=== PATIENT | male | born 1970 | race African-American/Black ===

== ENCOUNTER 2019-01-01 18:59 | Emergency (ER) | payer MEDICAID ==
[2019-01-01 20:08] LABS: BILIRUBIN,URINE NEGATIVE (NEGATIVE); GLUCOSE, URINE (UA) NEGATIVE (NEGATIVE); KETONES,URINE (UA) NEGATIVE (NEGATIVE); LEUKOCYTE ESTERASE, URINE NEGATIVE (NEGATIVE); NITRITE,URINE NEGATIVE (NEGATIVE); OCCULT BLOOD,URINE NEGATIVE (NEGATIVE); PROTEIN,URINE NEGATIVE (NEGATIVE); UROBILINOGEN,URINE 1 (NORMAL) E.U./dL (NORMAL)
[2019-01-01 20:14] LABS: CLARITY,URINE CLEAR (CLEAR)
[2019-01-01] MEDS ORDERED: AZITHROMYCIN 250 MG TABLET PO STA (20:45)
[2019-01-01] MEDS ORDERED: cefTRIAXone 250 MG VIAL IM STA (20:45)
[2019-01-01] MEDS ORDERED: LIDOCAINE 1% 2 ML VIAL MC ONE (20:45)
[2019-01-01] MEDS ORDERED: metroNIDAZOLE 250 MG TABLET PO STA (20:48)
--- NOTE | 2019-01-01 20:51 | ED Physician Documentation ---
PD HPI MALE - Stated complaint Stated Complaint: MALE - Chief complaint Chief Complaint: UTI - History obtained from History obtained from: Patient - History of Present Illness Timing - onset: How many weeks ago (3) Timing - duration: Weeks (3) Timing - details: Abrupt onset Associated symptoms: Discharge. No: Dysuria, Urinary frequency, Unable to urinate, Hematuria, Genital sore / lesion, Testiclar pain, Scrotal swelling, Abdominal pain, Back pain, Indwelling catheter, Hooper problem, Unable retract foreskin, Unable replace foreskin PD HPI MALE CONTRIB FACTORS: Sexually active (with a single female partner) Similar symptoms before: Has not had sx before Recently seen: Not recently seen - Treatment prior to arrival Treatment prior to arrival: none Review of Systems Ten Systems: 10 systems reviewed and negative Constitutional: denies: Fever Nose: reports: Reviewed and negative Throat: reports: Reviewed and negative Cardiac: reports: Reviewed and negative GI: denies: Abdominal Pain, Nausea, Vomiting : reports: Discharge. denies: Dysuria, Frequency, Hesitancy, Incontinent, Hematuria, Testicular pain Skin: reports: Reviewed and negative Immunocompromised: reports: Reviewed and negative PD PAST MEDICAL HISTORY - Past Medical History Past Medical History: Yes Endocrine/Autoimmune: Type 2 diabetes - Past Surgical History Past Surgical History: No - Allergies Allergies/Adverse Reactions: Allergies Allergy/AdvReac Type Severity Reaction Status Date / Time No Known Drug Allergies Allergy Verified 01/01/19 19:39 - Social History Does the pt smoke?: Yes Smoking Status: Current every day smoker Does the pt drink ETOH?: Yes ETOH Use: Beer Does the pt have substance abuse?: Yes Substance Use and Type: Marijuana - Immunizations Immunizations are current?: Yes - POLST Patient has POLST: No PD ED PE NORMAL - Vitals Vital signs reviewed: Yes - General General: Alert and oriented X 3, No acute distress - HEENT HEENT: Atraumatic, Pharynx benign - Neck Neck: Supple, no meningeal sign - Cardiac Cardiac: RRR - Respiratory Respiratory: No respiratory distress - Abdomen Abdomen: Soft, Non distended - Male Male : Deferred, Other (no lesions or bleeding, intermittent clear discharge) - Rectal Rectal: Deferred - Derm Derm: Normal color, Warm and dry, No rash - Neuro Neuro: Alert and oriented X 3 Eye Opening: Spontaneous Motor: Obeys Commands Verbal: Oriented GCS Score: 15 - Psych Psych: Normal mood, Normal affect Results - Vitals Vitals: Vital Signs - 24 hr 01/01/19 19:37 Temperature 36.4 C L Heart Rate 91 Respiratory 16 Rate Blood Pressure 134/81 H O2 Saturation 100 Oxygen O2 Source Room air - Labs Labs: Laboratory Tests 01/01/19 19:40 Urine Color YELLOW Urine Clarity CLEAR Urine pH 6.0 Ur Specific [place] >=1.030 H Urine Protein NEGATIVE Urine Glucose (UA) NEGATIVE Urine Ketones NEGATIVE Urine Occult Blood NEGATIVE Urine Nitrite NEGATIVE Urine Bilirubin NEGATIVE Urine Urobilinogen 1 (NORMAL) Ur Leukocyte Esterase NEGATIVE Ur Microscopic Review NOT INDICATED Urine Culture Comments NOT INDICATED UA negative PD MEDICAL DECISION MAKING - ED course Complexity details: reviewed results, re-evaluated patient, considered differential, d/w patient ED course: ddx- STD - gonorrhea, chlamydia, trichomonas PT requesting evaluation for HIV, syphillis, chlamydia, gonorrhea. He has had intermittent discharge, no lesions, no dysuria and is not otherwise ill. Discussed option to treat empirically for gonorrhea chlamydia and trichomonas which are most likely and discharge home with screening labs pending for HIV and syphillis. Pt has no HIV or syphillis symptoms so feel this is a low likelihood. Pt understands and will f/u for his results. Departure - Departure Disposition: 01 Home, Self Care Clinical Impression: Penile discharge Condition: Stable Record reviewed to determine appropriate education?: Yes Instructions: ED STD Male Treated Follow-Up: your, doctor [Other] Comments: You were treated empirically for gonorrhea, chlamydia and trichomonas which are all STDs that can cause penile discharge. You should not need additional treatment for those STDs. Lab testing for gonorrhea, chlamydia, syphillis and HIV were sent to the ED. You should return to the hospital in approximately 3 days to inquire about your lab results.
[2019-01-01 20:57] VITALS: BP 138/86
[2019-01-02 14:24] LABS: TRICHOMONAS VAGINALIS DNA NEGATIVE (NEGATIVE)
[2019-01-03 17:57] LABS: HIV AG/AB 4TH GEN NON-REACTIVE (NON-REACTIVE)
== END 2019-01-01 21:06 | disposition home or self-care (01) ==
LOC: ED 18:59
DX: R36.9 Urethral discharge, unspecified (principal); E11.9 Type 2 diabetes mellitus without complications; F17.200 Nicotine dependence, unspecified, uncomplicated
CPT/HCPCS: 36415; 81003; 86780; 87389; 87491; 87591; 87661; 96372; 99283; 99284; A9270; 81001; 87086